=== PATIENT | male | born 1970 | race Caucasian/White ===

== ENCOUNTER 2020-02-25 10:56 | Emergency (ER) | payer MEDICAID ==
[~2020-02-25] VITALS: Ht 167.6 cm; Wt 117.9 kg
[~2020-02-25 10:56] MED LIST: ASPIR 8181 MG PO; METFORMIN ER500 M1 PO; RANITIDINE HCL150 M1 PO; SIMVASTATIN20 M1 PO; ZESTRIL20 MG PO
[2020-02-25 11:07] VITALS: Ht 167.6 cm; Wt 117.9 kg
[2020-02-25 12:06] LABS: CALCIUM 8.5 mg/dL (8.5-10.1); CARBON DIOXIDE 29.6 mmol/L (21-32); CHLORIDE SERUM 101 mmol/L (98-107); CREATININE SERUM 0.9 mg/dL (0.7-1.3); GFR1 > 60 mL/min; GLUCOSE SERUM 126 mg/dL (74-106); POTASSIUM SERUM 3.7 mmol/L (3.5-5.1); SODIUM SERUM 136 mmol/L (136-145)
[2020-02-25 12:10] LABS: ALKALINE PHOSPHATASE 87 U/L (46-116); ALT/SGPT 58 U/L (16-63); AST/SGOT 44 U/L (15-37); BILIRUBIN TOTAL 0.5 mg/dL (0.20-1.00); TOTAL PROTEIN, SERUM 6.2 g/dL (6.4-8.2)
[2020-02-25 12:21] LABS: ALBUMIN 2.7 g/dL (3.4-5.0)
[2020-02-25 13:18] VITALS: BP 123/78
== END 2020-02-25 13:18 | disposition home or self-care (01) ==
LOC: ED 10:56
PROVIDERS: Emergency Medicine
DX: I87.2 Venous insufficiency (chronic) (peripheral) (principal); I10 Essential (primary) hypertension
CPT/HCPCS: 36415; 83880